=== PATIENT | female | born 1940 | race Caucasian/White ===

== ENCOUNTER 2018-03-11 22:28 | Inpatient (IN) ==
[2018-03-11 22:49] LABS: Basophils % 0.2 % (0.0-0.8); Eosinophils % 0.3 % (0.00-10.9); Hematocrit 39.1 VOL% (35.7-47.0); Hemoglobin 12.8 GM/DL (12.0-16.0); Immature Granulocytes % 0.5 %; Immature Granulocytes Absolute 0.06 #; Lymphocytes # 1.3 10*3/uL (1.4-4.0); Lymphocytes % 11.1 % (21.3-54.2); Mean Corpuscular HGB Conc 32.7 GM/DL (32-36); Mean Corpuscular Hemoglobin 33 PG (27-34); Mean Corpuscular Volume 99.2 FL (87-102); Mean Platelet Volume 11.3 FL (9.6-12.0); Monocytes # 0.9 10*3/uL (0.11-0.8); Monocytes % 7.5 % (1.7-12.7); Neutrophils # 9.5 10*3/uL (1.4-7.4); Neutrophils % 80.4 % (38.7-73.9); Platelet Count 246 T/CUMM (130-400); Red Blood Count 3.94 MC/CUMM (3.8-5.5); Red Cell Distribution Width 12.4 % (9.3-17.3); White Blood Count 11.8 T/CUMM (4-12)
[2018-03-11 23:12] LABS: Alanine Aminotransferase 20 U/L (13-56); Albumin 3.5 G/DL (3.4-5.0); Alkaline Phosphatase 78 U/L (45-117); Amylase 42 U/L (25-115); Aspartate Amino Transferase 30 U/L (0-37); Bilirubin,Total < 0.39 MG/DL (0.2-1.0); Blood Urea Nitrogen 11 MG/DL (7-18); Calcium 8.8 MG/DL (8.5-10.1); Glucose 151 MG/DL (74-106); Lactic Acid 1.8 MMOL/L (0.4-2.0); Osmolality,Calculated 284.1 MOS/KG (273-304); Sodium 142 MMOL/L (136-145); Total Protein 6.7 G/DL (6.4-8.3)
[2018-03-12 08:47] LABS: Risk Ratio 3.64
[2018-03-13 05:37] LABS: Calcium 8.9 MG/DL (8.5-10.1); Osmolality,Calculated 284.1 MOS/KG (273-304); Potassium 3.6 MMOL/L (3.5-5.1)
[2018-03-14 04:50] LABS: Apearance,Urine CLEAR (Clear); Bilirubin,Urine Negative (Negative); Blood, Urine Negative (Negative); Glucose,Urine (UA) Negative (Negative); Hyaline Casts,Urine 1 /LPF (0-3); Ketones,Urine Negative (Negative); Mucus,Urine Occasional /LPF (Occasional); Nitrite,Urine Negative (Negative); Protein,Urine Negative; RBC,Urine <1 /HPF (0-4); Urine Color Straw (Yellow); Urine Specific Gravity 1.006 (1.001-1.035); Urine Urobilinogen < 2.0 EU/DL (0.2-1.0); WBC,Urine <1 /HPF (0-6)
[2018-03-14 04:58] LABS: Basophils % 0.3 % (0.0-0.8); Eosinophils # 0.3 10*3/uL (0.0-0.87); Eosinophils % 2.6 % (0.00-10.9); Hematocrit 37.6 VOL% (35.7-47.0); Hemoglobin 12.8 GM/DL (12.0-16.0); Immature Granulocytes % 0.8 %; Immature Granulocytes Absolute 0.08 #; Lymphocytes % 20.4 % (21.3-54.2); Mean Corpuscular Hemoglobin 32 PG (27-34); Mean Corpuscular Volume 95.2 FL (87-102); Monocytes # 1.2 10*3/uL (0.11-0.8); Monocytes % 12.3 % (1.7-12.7); Neutrophils # 6.1 10*3/uL (1.4-7.4); Neutrophils % 63.6 % (38.7-73.9); Platelet Count 302 T/CUMM (130-400); Red Blood Count 3.95 MC/CUMM (3.8-5.5); Red Cell Distribution Width 12.6 % (9.3-17.3); White Blood Count 9.6 T/CUMM (4-12)
[2018-03-14 05:29] LABS: Calcium 9.2 MG/DL (8.5-10.1); Osmolality,Calculated 278.5 MOS/KG (273-304); Potassium 3.9 MMOL/L (3.5-5.1)
[2018-03-15 07:16] LABS: Basophils % 0.3 % (0.0-0.8); Eosinophils # 0.1 10*3/uL (0.0-0.87); Eosinophils % 1.1 % (0.00-10.9); Hematocrit 38.3 VOL% (35.7-47.0); Hemoglobin 12.6 GM/DL (12.0-16.0); Immature Granulocytes % 0.3 %; Immature Granulocytes Absolute 0.03 #; Lymphocytes # 1.6 10*3/uL (1.4-4.0); Mean Corpuscular HGB Conc 32.9 GM/DL (32-36); Mean Corpuscular Hemoglobin 32 PG (27-34); Mean Corpuscular Volume 98.2 FL (87-102); Mean Platelet Volume 11.2 FL (9.6-12.0); Monocytes # 1.2 10*3/uL (0.11-0.8); Monocytes % 12.2 % (1.7-12.7); Neutrophils # 6.7 10*3/uL (1.4-7.4); Neutrophils % 69.1 % (38.7-73.9); Platelet Count 249 T/CUMM (130-400); Red Cell Distribution Width 12.4 % (9.3-17.3); White Blood Count 9.6 T/CUMM (4-12)
[2018-03-15 07:47] LABS: Calcium 8.8 MG/DL (8.5-10.1); Osmolality,Calculated 274.8 MOS/KG (273-304); Potassium 3.9 MMOL/L (3.5-5.1)
[2018-03-16 06:35] LABS: Basophils % 0.1 % (0.0-0.8); Hematocrit 31.6 VOL% (35.7-47.0); Hemoglobin 10.5 GM/DL (12.0-16.0); Immature Granulocytes % 0.6 %; Immature Granulocytes Absolute 0.06 #; Lymphocytes # 0.7 10*3/uL (1.4-4.0); Lymphocytes % 7.5 % (21.3-54.2); Mean Corpuscular HGB Conc 33.2 GM/DL (32-36); Mean Corpuscular Hemoglobin 33 PG (27-34); Mean Corpuscular Volume 99.1 FL (87-102); Mean Platelet Volume 12.2 FL (9.6-12.0); Monocytes # 0.8 10*3/uL (0.11-0.8); Monocytes % 7.8 % (1.7-12.7); Neutrophils # 8.1 10*3/uL (1.4-7.4); Platelet Count 161 T/CUMM (130-400); Red Blood Count 3.19 MC/CUMM (3.8-5.5); Red Cell Distribution Width 12.3 % (9.3-17.3); White Blood Count 9.6 T/CUMM (4-12)
[2018-03-16 07:10] LABS: Calcium 8.7 MG/DL (8.5-10.1); Osmolality,Calculated 279.5 MOS/KG (273-304); Potassium 4.1 MMOL/L (3.5-5.1)
[2018-03-17 05:58] LABS: Basophils % 0.5 % (0.0-0.8); Eosinophils # 0.1 10*3/uL (0.0-0.87); Eosinophils % 0.8 % (0.00-10.9); Hematocrit 31.6 VOL% (35.7-47.0); Hemoglobin 10.5 GM/DL (12.0-16.0); Immature Granulocytes % 0.5 %; Immature Granulocytes Absolute 0.03 #; Lymphocytes # 1.3 10*3/uL (1.4-4.0); Lymphocytes % 19.2 % (21.3-54.2); Mean Corpuscular HGB Conc 33.2 GM/DL (32-36); Mean Corpuscular Hemoglobin 33 PG (27-34); Mean Corpuscular Volume 98.1 FL (87-102); Mean Platelet Volume 12.6 FL (9.6-12.0); Monocytes # 1.2 10*3/uL (0.11-0.8); Monocytes % 18.4 % (1.7-12.7); Neutrophils % 60.6 % (38.7-73.9); Platelet Count 137 T/CUMM (130-400); Red Blood Count 3.22 MC/CUMM (3.8-5.5); White Blood Count 6.6 T/CUMM (4-12)
[2018-03-17 06:36] LABS: Osmolality,Calculated 280.7 MOS/KG (273-304); Potassium 3.7 MMOL/L (3.5-5.1)
[2018-03-17 06:38] LABS: Eosinophils 1 % (0-10); Lymphocytes 13 % (20-55); Segmented Neutrophils 72 % (50-85); Total Cells Counted 100
[2018-03-17 06:40] LABS: Hypochromasia Slight
[2018-03-17 06:41] LABS: Macrocytosis Slight; Platelet Estimate Adequate
[2018-03-18 03:58] LABS: Basophils # 0.1 10*3/uL (0.0-0.2); Basophils % 0.6 % (0.0-0.8); Eosinophils # 0.3 10*3/uL (0.0-0.87); Eosinophils % 3.2 % (0.00-10.9); Hematocrit 32.3 VOL% (35.7-47.0); Immature Granulocytes % 0.4 %; Immature Granulocytes Absolute 0.04 #; Lymphocytes # 1.6 10*3/uL (1.4-4.0); Lymphocytes % 17.4 % (21.3-54.2); Mean Corpuscular HGB Conc 34.1 GM/DL (32-36); Mean Corpuscular Hemoglobin 33 PG (27-34); Monocytes # 1.4 10*3/uL (0.11-0.8); Monocytes % 15.2 % (1.7-12.7); Neutrophils # 5.6 10*3/uL (1.4-7.4); Neutrophils % 63.2 % (38.7-73.9); Platelet Count 162 T/CUMM (130-400); Red Blood Count 3.33 MC/CUMM (3.8-5.5); Red Cell Distribution Width 12.1 % (9.3-17.3); White Blood Count 8.9 T/CUMM (4-12)
[2018-03-18 04:31] LABS: Calcium 7.9 MG/DL (8.5-10.1); Potassium 3.2 MMOL/L (3.5-5.1)
[2018-03-20 06:56] LABS: Calcium 8.6 MG/DL (8.5-10.1); Osmolality,Calculated 280.4 MOS/KG (273-304)
[2018-03-21 06:40] LABS: Basophils % 0.4 % (0.0-0.8); Eosinophils # 0.2 10*3/uL (0.0-0.87); Eosinophils % 2.4 % (0.00-10.9); Hematocrit 30.3 VOL% (35.7-47.0); Hemoglobin 9.8 GM/DL (12.0-16.0); Immature Granulocytes % 0.3 %; Immature Granulocytes Absolute 0.03 #; Lymphocytes # 1.4 10*3/uL (1.4-4.0); Lymphocytes % 14.4 % (21.3-54.2); Mean Corpuscular HGB Conc 32.3 GM/DL (32-36); Mean Corpuscular Hemoglobin 32 PG (27-34); Mean Corpuscular Volume 99.3 FL (87-102); Mean Platelet Volume 12.1 FL (9.6-12.0); Monocytes # 1.1 10*3/uL (0.11-0.8); Monocytes % 11.4 % (1.7-12.7); Neutrophils # 7.1 10*3/uL (1.4-7.4); Neutrophils % 71.1 % (38.7-73.9); Platelet Count 228 T/CUMM (130-400); Red Blood Count 3.05 MC/CUMM (3.8-5.5); Red Cell Distribution Width 12.4 % (9.3-17.3)
[2018-03-21 07:07] LABS: Calcium 8.4 MG/DL (8.5-10.1); Osmolality,Calculated 280.3 MOS/KG (273-304); Potassium 3.6 MMOL/L (3.5-5.1)
[2018-03-22 11:31] VITALS: BP 132/57
== END 2018-03-22 15:28 | disposition swing bed (61) | DRG 551 ==
LOC: EDBD → EDUNIT# → N.ED 22:28 → N.EDINP 22:28 → SUATTDRO 03-12 02:41 → N.2E 03-12 05:04 → SUATTDRO 03-14 10:24
PROVIDERS: ADMIT Hospitalist; ATTEND Internal Medicine

== ENCOUNTER 2019-06-17 16:41 | Observation (INO) ==
[2019-06-17] MEDS ORDERED: ONDANSETRON 4 MG/2 ML VIAL IV ONE (16:56)
[2019-06-17] MEDS ORDERED: ASPIRIN 325 MG TABLET PO STA (16:56)
[2019-06-17] MEDS ORDERED: SODIUM CHLORIDE 0.9% 1,000 ML IV STA (16:56)
[2019-06-17 17:42] LABS: Basophils % 0.2 % (0.0-0.8); Eosinophils # 0.4 10*3/uL (0.0-0.87); Eosinophils % 2.4 % (0.00-10.9); Hematocrit 27.6 VOL% (35.7-47.0); Hemoglobin 8.5 GM/DL (12.0-16.0); Immature Granulocytes % 0.9 %; Immature Granulocytes Absolute 0.13 #; Lymphocytes # 1.3 10*3/uL (1.4-4.0); Lymphocytes % 9.2 % (21.3-54.2); Mean Corpuscular HGB Conc 30.8 GM/DL (32-36); Mean Corpuscular Volume 87.9 FL (87-102); Mean Platelet Volume 9.9 FL (9.6-12.0); Monocytes % 9.8 % (1.7-12.7); Neutrophils % 77.5 % (38.7-73.9); Platelet Count 331 T/CUMM (130-400); Red Blood Count 3.14 MC/CUMM (3.8-5.5); Red Cell Distribution Width 17.4 % (9.3-17.3); White Blood Count 14.4 T/CUMM (4-12)
[2019-06-17 17:51] LABS: INR 0.9; PT Patient Result 9.8 SECS
[2019-06-17 18:07] LABS: Alanine Aminotransferase 17 U/L (13-56); Albumin 2.8 G/DL (3.4-5.0); Alkaline Phosphatase 74 U/L (45-117); Aspartate Amino Transferase 17 U/L (0-37); Bilirubin,Total < 0.39 MG/DL (0.2-1.0); Blood Urea Nitrogen 26 MG/DL (7-18); Calcium 8.7 MG/DL (8.5-10.1); Glucose 128 MG/DL (74-106); Osmolality,Calculated 281.7 MOS/KG (273-304); Total Protein 6.1 G/DL (6.4-8.3)
[2019-06-17 19:40] LABS: Apearance,Urine CLEAR (Clear); Bilirubin,Urine Negative (Negative); Blood, Urine Negative (Negative); Glucose,Urine (UA) Negative (Negative); Ketones,Urine Negative (Negative); Nitrite,Urine Negative (Negative); Protein,Urine 100 MG/DL; RBC,Urine <1 /HPF (0-4); Squamous Epithelial Cell,Urine Occasional /HPF (0-10); Urine Color Yellow (Yellow); Urine Specific Gravity 1.013 (1.001-1.035); Urine Urobilinogen < 2.0 EU/DL (0.2-1.0); WBC,Urine 5 /HPF (0-6)
[2019-06-17] MEDS ORDERED: ONDANSETRON 4 MG/2 ML VIAL IV PRN (20:54)
[2019-06-17] MEDS: ENOXAPARIN 40 MG/0.4 ML SYRINGE SUBCUT SCH (23:10)
[2019-06-17] MEDS: ACETAMINOPHEN 325 MG TABLET PO PRN (23:10)
[2019-06-18] MEDS: ACETAMINOPHEN 325 MG TABLET PO PRN ×3 (03:42→13:52)
[2019-06-18 07:55] LABS: Basophils % 0.4 % (0.0-0.8); Eosinophils # 0.5 10*3/uL (0.0-0.87); Eosinophils % 5.5 % (0.00-10.9); Hematocrit 24.9 VOL% (35.7-47.0); Hemoglobin 7.5 GM/DL (12.0-16.0); Immature Granulocytes % 0.4 %; Immature Granulocytes Absolute 0.04 #; Lymphocytes # 1.8 10*3/uL (1.4-4.0); Lymphocytes % 19.2 % (21.3-54.2); Mean Corpuscular HGB Conc 30.1 GM/DL (32-36); Mean Corpuscular Volume 88.9 FL (87-102); Mean Platelet Volume 9.8 FL (9.6-12.0); Monocytes % 13.3 % (1.7-12.7); Neutrophils % 61.2 % (38.7-73.9); Platelet Count 275 T/CUMM (130-400); Red Cell Distribution Width 17.6 % (9.3-17.3); White Blood Count 9.5 T/CUMM (4-12)
[2019-06-18] MEDS: PANTOPRAZOLE 40 MG TABLET PO SCH (08:01)
[2019-06-18 08:15] LABS: Alanine Aminotransferase 15 U/L (13-56); Albumin 2.5 G/DL (3.4-5.0); Alkaline Phosphatase 73 U/L (45-117); Aspartate Amino Transferase 14 U/L (0-37); Bilirubin,Total < 0.39 MG/DL (0.2-1.0); Blood Urea Nitrogen 22 MG/DL (7-18); Calcium 8.4 MG/DL (8.5-10.1); Glucose 117 MG/DL (74-106); Osmolality,Calculated 286.1 MOS/KG (273-304); Total Protein 5.4 G/DL (6.4-8.3)
[2019-06-18] MEDS: oxyCODONE/ACETAMINOPHEN 5-325 MG TABLET PO PRN ×2 (09:43→19:53)
[2019-06-18] MEDS: CARVEDILOL 25 MG TABLET PO SCH ×2 (13:49→20:01)
[2019-06-18] MEDS: LISINOPRIL 5 MG TABLET PO SCH (13:49)
[2019-06-18] MEDS: ASCORBIC ACID 500 MG TABLET PO SCH (13:49)
[2019-06-18] MEDS: ASPIRIN EC 81 MG TABLET PO SCH (13:49)
[2019-06-18] MEDS: ENOXAPARIN 40 MG/0.4 ML SYRINGE SUBCUT SCH (20:01)
[2019-06-19] MEDS: oxyCODONE/ACETAMINOPHEN 5-325 MG TABLET PO PRN ×5 (00:47→21:50)
[2019-06-19] MEDS: ZALEPLON 5 MG CAPSULE PO PRN (02:39)
[2019-06-19] MEDS: ACETAMINOPHEN 325 MG TABLET PO PRN (03:21)
[2019-06-19] MEDS: ASCORBIC ACID 500 MG TABLET PO SCH (08:42)
[2019-06-19] MEDS: ASPIRIN EC 81 MG TABLET PO SCH (08:42)
[2019-06-19] MEDS: LISINOPRIL 5 MG TABLET PO SCH (08:42)
[2019-06-19] MEDS: CARVEDILOL 25 MG TABLET PO SCH ×2 (08:42→21:49)
[2019-06-19] MEDS: PANTOPRAZOLE 40 MG TABLET PO SCH (08:42)
[2019-06-19 12:07] LABS: Basophils # 0.1 10*3/uL (0.0-0.2); Basophils % 0.6 % (0.0-0.8); Eosinophils # 0.7 10*3/uL (0.0-0.87); Hematocrit 25.2 VOL% (35.7-47.0); Hemoglobin 7.5 GM/DL (12.0-16.0); Immature Granulocytes % 0.5 %; Immature Granulocytes Absolute 0.04 #; Lymphocytes # 1.4 10*3/uL (1.4-4.0); Lymphocytes % 17.2 % (21.3-54.2); Mean Corpuscular HGB Conc 29.8 GM/DL (32-36); Mean Corpuscular Volume 90.3 FL (87-102); Mean Platelet Volume 10.1 FL (9.6-12.0); Neutrophils % 56.7 % (38.7-73.9); Platelet Count 255 T/CUMM (130-400); Red Blood Count 2.79 MC/CUMM (3.8-5.5); Red Cell Distribution Width 17.3 % (9.3-17.3); White Blood Count 8.2 T/CUMM (4-12)
[2019-06-19 12:23] LABS: Calcium 8.2 MG/DL (8.5-10.1); Osmolality,Calculated 284.1 MOS/KG (273-304)
[2019-06-19 12:31] LABS: Eosinophils 11 % (0-10); Lymphocytes 18 % (20-55); Platelet Estimate Adequate; Segmented Neutrophils 63 % (50-85); Total Cells Counted 100
[2019-06-19 12:32] LABS: Hypochromasia 1+
[2019-06-19] MEDS: ENOXAPARIN 40 MG/0.4 ML SYRINGE SUBCUT SCH (21:52)
[2019-06-20] MEDS: oxyCODONE/ACETAMINOPHEN 5-325 MG TABLET PO PRN ×4 (03:44→23:08)
[2019-06-20 06:35] LABS: Basophils % 0.5 % (0.0-0.8); Eosinophils # 0.9 10*3/uL (0.0-0.87); Eosinophils % 9.8 % (0.00-10.9); Hematocrit 24.7 VOL% (35.7-47.0); Hemoglobin 7.4 GM/DL (12.0-16.0); Immature Granulocytes % 0.5 %; Immature Granulocytes Absolute 0.04 #; Lymphocytes # 1.7 10*3/uL (1.4-4.0); Lymphocytes % 19.2 % (21.3-54.2); Mean Corpuscular Volume 89.2 FL (87-102); Mean Platelet Volume 10.3 FL (9.6-12.0); Monocytes % 13.5 % (1.7-12.7); Neutrophils % 56.5 % (38.7-73.9); Platelet Count 262 T/CUMM (130-400); Red Blood Count 2.77 MC/CUMM (3.8-5.5); Red Cell Distribution Width 17.2 % (9.3-17.3); White Blood Count 8.8 T/CUMM (4-12)
[2019-06-20 07:07] LABS: Calcium 8.7 MG/DL (8.5-10.1); Osmolality,Calculated 278.5 MOS/KG (273-304)
[2019-06-20] MEDS: CARVEDILOL 25 MG TABLET PO SCH ×2 (08:06→22:19)
[2019-06-20] MEDS: LISINOPRIL 5 MG TABLET PO SCH (08:06)
[2019-06-20] MEDS: PANTOPRAZOLE 40 MG TABLET PO SCH (08:07)
[2019-06-20] MEDS: ASPIRIN EC 81 MG TABLET PO SCH (08:07)
[2019-06-20] MEDS: ASCORBIC ACID 500 MG TABLET PO SCH (08:07)
[2019-06-20] MEDS: BISACODYL 10 MG SUPP RECTAL ONE ×2 (09:00→10:05)
[2019-06-20] MEDS: ENOXAPARIN 40 MG/0.4 ML SYRINGE SUBCUT SCH (22:19)
[2019-06-20] MEDS: ZALEPLON 5 MG CAPSULE PO PRN (23:08)
[2019-06-21] MEDS ORDERED: LACTATED RINGERS 1,000 ML IV SCH (08:00)
[2019-06-21] MEDS ORDERED: LIDOCAINE 2% 5 ML VIAL ONE (10:00)
[2019-06-21] MEDS ORDERED: LABETALOL 100 MG/20 ML VIAL IV ONE (10:00)
[2019-06-21] MEDS ORDERED: PROPOFOL 200 MG/20 ML VIAL IV ONE (10:00)
[2019-06-21] MEDS: CARVEDILOL 25 MG TABLET PO SCH ×2 (12:48→22:52)
[2019-06-21] MEDS: LISINOPRIL 5 MG TABLET PO SCH (12:49)
[2019-06-21] MEDS: PANTOPRAZOLE 40 MG TABLET PO SCH (12:49)
[2019-06-21] MEDS: ASCORBIC ACID 500 MG TABLET PO SCH (12:49)
[2019-06-21] MEDS: oxyCODONE/ACETAMINOPHEN 5-325 MG TABLET PO PRN ×2 (13:40→19:34)
[2019-06-21 14:17] LABS: Basophils % 0.4 % (0.0-0.8); Eosinophils # 0.6 10*3/uL (0.0-0.87); Eosinophils % 8.4 % (0.00-10.9); Hematocrit 24.3 VOL% (35.7-47.0); Hemoglobin 7.2 GM/DL (12.0-16.0); Immature Granulocytes % 0.4 %; Immature Granulocytes Absolute 0.03 #; Lymphocytes # 1.3 10*3/uL (1.4-4.0); Lymphocytes % 18.1 % (21.3-54.2); Mean Corpuscular HGB Conc 29.6 GM/DL (32-36); Mean Corpuscular Volume 89.3 FL (87-102); Mean Platelet Volume 10.3 FL (9.6-12.0); Monocytes % 14.9 % (1.7-12.7); Neutrophils % 57.8 % (38.7-73.9); Platelet Count 224 T/CUMM (130-400); Red Blood Count 2.72 MC/CUMM (3.8-5.5); Red Cell Distribution Width 17.1 % (9.3-17.3); White Blood Count 7.1 T/CUMM (4-12)
[2019-06-21] MEDS: ASPIRIN EC 81 MG TABLET PO SCH (20:13)
[2019-06-21] MEDS: ENOXAPARIN 40 MG/0.4 ML SYRINGE SUBCUT SCH (21:34)
[2019-06-21] MEDS: ZALEPLON 5 MG CAPSULE PO PRN (21:37)
[2019-06-22] MEDS: oxyCODONE/ACETAMINOPHEN 5-325 MG TABLET PO PRN ×2 (02:09→09:07)
[2019-06-22] MEDS: CARVEDILOL 25 MG TABLET PO SCH (09:06)
[2019-06-22] MEDS: LISINOPRIL 5 MG TABLET PO SCH (09:06)
[2019-06-22] MEDS: ASCORBIC ACID 500 MG TABLET PO SCH (09:07)
[2019-06-22] MEDS: PANTOPRAZOLE 40 MG TABLET PO SCH (09:07)
[2019-06-22 11:32] VITALS: BP 147/65
== END 2019-06-22 13:35 | disposition home or self-care (01) ==
LOC: N.EDINP 16:41 → N.ED 16:41 → N.5E 21:37